=== PATIENT | female | born 1985 | race Caucasian/White ===

== ENCOUNTER 2017-04-05 12:55 | Emergency (ER) | payer OTHER ==
[2017-04-05 14:53] LABS: BASOPHIL % 1.1 % (0-2); PLATELET COUNT 300 x10^3mcL (130-400); RED CELL DISTRIBUTION WIDTH 13.1 % (11.5-14.5)
[2017-04-05 15:02] LABS: CALCIUM 9.3 mg/dL (8.5-10.1); CARBON DIOXIDE 28.5 mmol/L (21-32); CHLORIDE SERUM 101 mmol/L (98-107); CREATININE SERUM 0.8 mg/dL (0.6-1.0); GFR1 > 60 mL/min; GLUCOSE SERUM 114 mg/dL (74-106); POTASSIUM SERUM 3.3 mmol/L (3.5-5.1); SODIUM SERUM 139 mmol/L (136-145)
[2017-04-05 15:07] LABS: ALBUMIN 4.7 g/dL (3.4-5.0); ALKALINE PHOSPHATASE 62 U/L (46-116); ALT/SGPT 14 U/L (14-59); AST/SGOT 11 U/L (15-37); BILIRUBIN TOTAL 0.3 mg/dL (0.20-1.00); LIPASE 148 IU/L (73-393)
[2017-04-05 15:13] LABS: TOTAL PROTEIN, SERUM 8.3 g/dL (6.4-8.2)
[2017-04-05 18:12] LABS: microscopic required? YES; urine erythrocyte NEGATIVE (NEGATIVE)
[2017-04-05 18:35] VITALS: BP 140/93
== END 2017-04-05 18:35 | disposition home or self-care (01) ==
LOC: ED 12:55
PROVIDERS: Emergency Medicine
DX: K29.00 Acute gastritis without bleeding (principal); R11.10 Vomiting, unspecified; E86.0 Dehydration; E87.6 Hypokalemia; F84.0 Autistic disorder; Z88.0 Allergy status to penicillin
CPT/HCPCS: J1885; J2405; J7030

== ENCOUNTER 2017-07-25 14:22 | Inpatient (IN) | payer OTHER ==
[~2017-07-25] VITALS: Ht 167.6 cm; Wt 54.6 kg
--- NOTE | 2017-07-25 16:05 | NUR ---
PT BIB FATHER FOR C/O VOMITING AND FLU LIKE SX X 4 DAYS, PT DENIES HEADACHE, REPORTS PAIN TO ABDOMEN "FROM VOMITING" REPORTS NAUSEA WITH LAST EPISODE OF VOMITING THIS AM, PER FATHER SHE VOMITED APPROX TWICE THIS AM, DENIES SEEING BLOOD IN EMESIS, PER FATHER PT HAS "HIGH FUNCTIONING AUTISM" PT ABLE TO VERBALIZE NEEDS WITH OUT ANY PROBLEMS, PER FATHER PT TAKE TRAZODONE WITH NO CHANGES, REPORTS AFTER GIVING GATERADE PT VOMITS APPROX 30 MIN AFTER, PT FATHER DENIES DIARRHEA, ABD SOFT, SLIGHT TENDERNESS UPON PALPATION TO RLQ AND KATHYA UPPER QUANDRANTS, PT AWAKE AND ALERT, NO RECENT CHANGES IN MENTATION PER FATHER, PER FATHER SX STARTED TUESDAY, PT RESP EVEN AND UNLABORED, DENIES COUGH, LS CTA BILATERALLY, IN NO ACUTE DISTRESS, ON FULL MONITORS, WILL CONTINUE TO MONITOR
--- NOTE | 2017-07-25 16:07 | NUR ---
DR. VALDEZ AT BEDSIDE FOR MSE
--- NOTE | 2017-07-25 16:10 | NUR ---
INST PT TO PROVIDE URINE SAMPLE, PER PT AND PTS FATHER SHE ATTEMPTED APPROX 20 MINUTES AGO WITH NO SUCCESS, FATHER STS "I THINK SHES THAT DEHYDRATED" PER FATHER AND PT SHE WILL ATTEMPT ONCE SHE RECEIVE IV FLUIDS
--- NOTE | 2017-07-25 16:29 | NUR ---
LAB AT BEDSIDE FOR BLOOD DRAW AND CULTURES
[2017-07-25 16:52] LABS: BASOPHIL % 1.6 % (0-2); PLATELET COUNT 226 x10^3mcL (130-400); RED CELL DISTRIBUTION WIDTH 12.5 % (11.5-14.5)
--- NOTE | 2017-07-25 16:56 | NUR ---
PT AMBULATORY WITH STEADY GAIT TO RESTROOM AND BACK TO TREATMENT AREA WITH NO INCIDENCE TO PROVIDE A URINE SAMPLE, PT BACK TO BED IN A POSITION OF COMFORT, IVF CURRENTLY INFUSING AT THIS TIME, PT IN NO ACUTE DISTRESS,CALL LIGHT WITHIN REACH, WILL CONTINUE TO MONITOR
[2017-07-25 17:00] LABS: CALCIUM 9.2 mg/dL (8.5-10.1); CARBON DIOXIDE 27.8 mmol/L (21-32); CHLORIDE SERUM 98 mmol/L (98-107); CREATININE SERUM 0.5 mg/dL (0.6-1.0); GFR1 > 60 mL/min; GLUCOSE SERUM 102 mg/dL (74-106); POTASSIUM SERUM 3.4 mmol/L (3.5-5.1); SODIUM SERUM 140 mmol/L (136-145)
[2017-07-25 17:04] LABS: ALBUMIN 4.3 g/dL (3.4-5.0); ALKALINE PHOSPHATASE 65 U/L (46-116); ALT/SGPT 12 U/L (14-59); AMYLASE 49 U/L (25-115); AST/SGOT 10 U/L (15-37); BILIRUBIN TOTAL 0.3 mg/dL (0.20-1.00); LIPASE 144 IU/L (73-393); TOTAL PROTEIN, SERUM 7.8 g/dL (6.4-8.2)
[2017-07-25 17:16] LABS: UA SPECIFIC GRAVITY 1.025 (1.005-1.035); microscopic required? YES; urine erythrocyte 3+ (NEGATIVE)
[2017-07-25 17:24] LABS: AMPHETAMINE QUAL UR NONE DETECTED (NEG <=1000)
--- NOTE | 2017-07-25 18:27 | NUR ---
PT HAD ONE VOMITING EPISODE AND REPORTS NAUSEA AT THIS TIME, DR. VALDEZ MADE AWARE, PT MEDICATED PER MD ORDER, PLEASE SEE EMAR, PT TOLERATED WELL, WILL CHECK IF PT IS STILL NAUSEATED BEFORE ADMINSITERED ORDERED PO ABX IN APPROX 15-20 MINUTES, CALL LIGHT WITHIN REACH, PT FATHER AT BEDSIDE AT THIS TIME, WILL CONTINUE TO MONITOR
--- NOTE | 2017-07-25 18:47 | NUR ---
PT DENIES NAUSEA AT THIS TIME, INST TO TAKE SMALL SIPS OF WATER, PT ABLE TO WITHOUT FEELING NAUSEATED, PT MEDICATED PER MD ORDER, PLEASE SEE EMAR, PT TOLERATED WELL, PT SITTING IN BED IN A POSITION OF COMFORT, RESP EVEN AND UNLABORED, IN NO ACUTE DISTRESS, CALL LIGHT WITHIN REACH, WILL CONT TO MONITOR
--- NOTE | 2017-07-25 18:57 | NUR ---
PLAN OF CARE DISCUSSED BY DR. VALDEZ TO PT AND PTS FATHER AT BEDSIDE
[2017-07-25] MEDS ORDERED: AMITRIPTYLINE H10 MG PO (19:13)
[2017-07-25] MEDS ORDERED: TRAZODONE50 M1 PO (19:14)
--- NOTE | 2017-07-25 19:14 | NUR ---
MED REC COMPLETED, PER PT FATHER PT TAKES MEDICATIONS TO HELP WITH SLEEP DUE TO PT HAVING PTSD APPROX 5 YEARS AGO DUE TO A "BREAK IN"
--- NOTE | 2017-07-25 19:33 | NUR ---
REPORT GIVEN TO [facility] TELE FLOOR TO ASSUME CARE OF PT
--- NOTE | 2017-07-25 19:47 | NUR ---
REC'D PT FROM ER VIA [facility]ANILO. PT IS AAOX4. SLOW TO ANSWER. HX OF AUTISM. TELE #5 SR. LUNG SOUNDS CLEAR. NO SOB NOTED. ABD SOFT. BS ACTIVE X4. PT C/O MILD NAUSEA AND 5/10 ABD PAIN. IV NOTED TO LAC. INTACT AND PATENT. ORIENTED PT TO CALL LIGHT. BED IN LOWEST POSITION. WILL ENDORSE TO PRIMARY RN.
--- NOTE | 2017-07-25 19:50 | NUR ---
RECEIVED PT FROM ER VIA GURNEY WITH NURSE AT BEDSIDE. PT IS AWAKE, ALERT, ORIENTED X4. SPEECH CLEAR. PT ADMITTED FOR N/V, DEHYDRATION. PT STATES SHE IS FEELING BETTER WITH LITTLE NAUSEA NOTED. IVF INFUSING NS AT 100ML/HR. MIQUEL, RESOURCE NURSE, AT BEDSIDE TO ADMIT PT. TELE 5 PLACED ON PT, SHOWS NSR WITH HR 96. DENIES CHEST PAIN. INITIAL ASSESSMENT COMPLETED BY MIQUEL. INSTRUCTED PT TO USE CALL LIGHT WHICH IS WITHIN REACH. BED IS IN LOWEST POSITION. WILL CARRY OUT ALL NEW ORDERS AT THIS TIME.
[2017-07-25 20:00] VITALS: BP 123/73
[2017-07-25 20:47] LABS: CHOLESTEROL/HDL RATIO 2.7; MAGNESIUM 2.3 mg/dL (1.8-2.4); PHOSPHOROUS 2.9 mg/dL (2.5-4.9)
[2017-07-25 20:56] LABS: T3 TOTAL 0.93 ng/mL
[2017-07-25 20:57] LABS: FREE T4 1.07 ng/dL (0.76-1.46); FREE THYROXINE INDEX 3.4 ug/dL (1.4-4.5); T4(THYROXINE) 10.1 ug/dL (4.7-13.3)
--- NOTE | 2017-07-26 01:05 | NUR ---
MOTHER AT BEDSIDE. IVF INFUSING WELL AT THIS TIME, AT 150ML/HR. RESTING IN BED. WILL CONTINUE TO MONITOR CLOSELY.
[2017-07-26 06:19] VITALS: BP 127/89
--- NOTE | 2017-07-26 06:38 | NUR ---
PT SLEPT ON AND OFF THROUGH OUT THE NIGHT. IVF ONGOING AT 150ML/HR. MOTHER AT BEDSIDE. ALL NEEDS TENDED TO. WILL CONTINUE TO MONITOR CLOSELY.
--- NOTE | 2017-07-26 07:16 | NUR ---
PT SEEN REST ON BED, AWAKE A/O X4. PT REPORTED FEELING NAUSEA, BUT NO VOMIT. PT'S MOM AT BED SIDE. PT BREATHING ON RA, EVEN, UNLABORED. IV SITE PATENT, INTACT. IVF INFUSING WELL.
[2017-07-26 08:15] VITALS: BP 128/89
--- NOTE | 2017-07-26 10:05 | NUR ---
PT COMPLAIN OF NAUSEA AND REPORT VOMIT. ZOFRAM GIVEN PER PRN ORDER.
[2017-07-26 10:06] VITALS: BP 132/96
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
[2017-07-26 12:50] VITALS: BP 128/86
[2017-07-26] MEDS ORDERED: BACTRIM DS1 TAB PO (13:32)
[2017-07-26] MEDS ORDERED: BD LACTINEX1.4 MG PO (13:32)
[2017-07-26] MEDS ORDERED: KLOR-CON M2020 MEQ PO (13:33)
[2017-07-26 14:41] VITALS: BP 128/86
[2017-07-26 14:47] VITALS: BP 88/58
--- NOTE | 2017-07-26 15:18 | NUR ---
PT IS READY TO BE DISCHARGE. PT'S MOM AT BED SIDE. PT NO COMPLAIN OF NAUSEA. PT IS ABLE TO KEEP LIQUID FOOD DOWN. NO DISTRESSED NOTED AT THIS TIME. IV IS REMOVED.
== END 2017-07-26 15:24 | disposition home or self-care (01) | DRG 689 ==
LOC: ED 14:22 → DU 19:13
PROVIDERS: Emergency Medicine; ADMIT Family Medicine
DX: N39.0 Urinary tract infection, site not specified (principal); N17.0 Acute kidney failure with tubular necrosis; F84.0 Autistic disorder; Z68.1 Body mass index [BMI] 19.9 or less, adult; E86.0 Dehydration; E87.6 Hypokalemia; F43.10 Post-traumatic stress disorder, unspecified
CPT/HCPCS: 83880; 84439; J1956; J2405; J3490; J7030; J7040; Q0092

== ENCOUNTER 2017-10-30 02:02 | Inpatient (IN) | payer OTHER ==
[~2017-10-30] VITALS: Ht 167.6 cm; Wt 53.1 kg
[~2017-10-30 02:02] MED LIST: AMITRIPTYLINE H10 MG PO; BACTRIM DS1 TAB PO; BD LACTINEX1.4 MG PO; KLOR-CON M2020 MEQ PO; TRAZODONE50 M1 PO
[2017-10-30 03:33] LABS: UA SPECIFIC GRAVITY 1.025 (1.005-1.035); microscopic required? YES; urine erythrocyte NEGATIVE (NEGATIVE)
[2017-10-30 03:35] LABS: BASOPHIL % 0.1 % (0-2); PLATELET COUNT 279 x10^3mcL (130-400); RED CELL DISTRIBUTION WIDTH 13.2 % (11.5-14.5)
[2017-10-30 03:46] LABS: CALCIUM 9.6 mg/dL (8.5-10.1); CARBON DIOXIDE 32.4 mmol/L (21-32); CHLORIDE SERUM 95 mmol/L (98-107); CREATININE SERUM 0.8 mg/dL (0.6-1.0); GFR1 > 60 mL/min; GLUCOSE SERUM 117 mg/dL (74-106); POTASSIUM SERUM 3.1 mmol/L (3.5-5.1); SODIUM SERUM 138 mmol/L (136-145)
[2017-10-30 03:51] LABS: ALBUMIN 4.6 g/dL (3.4-5.0); ALKALINE PHOSPHATASE 65 U/L (46-116); ALT/SGPT 16 U/L (14-59); AST/SGOT 18 U/L (15-37); BILIRUBIN TOTAL 0.45 mg/dL (0.20-1.00)
[2017-10-30 03:52] LABS: TOTAL PROTEIN, SERUM 8.7 g/dL (6.4-8.2)
[2017-10-30] MEDS ORDERED: AMITRIPTYLINE H10 MG PO (05:00)
[2017-10-30] MEDS ORDERED: TRAZODONE100 MG PO (05:02)
[2017-10-30] MEDS ORDERED: LATUDA40 M1 (05:02)
[2017-10-30 06:55] VITALS: BP 127/86
[2017-10-30 06:59] LABS: T3 TOTAL 0.88 ng/mL
[2017-10-30 07:07] LABS: MAGNESIUM 2.6 mg/dL (1.8-2.4); PHOSPHOROUS 3.6 mg/dL (2.5-4.9)
[2017-10-30 07:13] LABS: CHOLESTEROL/HDL RATIO 2.5
[2017-10-30 07:17] LABS: FREE T4 1.17 ng/dL (0.76-1.46); T4(THYROXINE) 11.8 ug/dL (4.7-13.3)
[2017-10-30 07:42] VITALS: BP 127/86
[2017-10-30] MEDS ORDERED: AMITRIPTYLINE H25 MG PO (09:46)
[2017-10-30 10:12] VITALS: BP 134/88
[2017-10-30 13:05] VITALS: BP 120/93
[2017-10-30 15:55] LABS: AMPHETAMINE QUAL UR NONE DETECTED (NEG <=1000)
[2017-10-30 17:23] VITALS: BP 131/88
[2017-10-30 21:33] VITALS: BP 121/91
[2017-10-31 05:45] VITALS: BP 116/83
[2017-10-31 06:59] LABS: CALCIUM 8.8 mg/dL (8.5-10.1); CARBON DIOXIDE 29.9 mmol/L (21-32); CHLORIDE SERUM 102 mmol/L (98-107); CREATININE SERUM 0.7 mg/dL (0.6-1.0); GFR1 > 60 mL/min; GLUCOSE SERUM 121 mg/dL (74-106); PHOSPHOROUS 2.7 mg/dL (2.5-4.9); POTASSIUM SERUM 3.1 mmol/L (3.5-5.1); SODIUM SERUM 138 mmol/L (136-145)
[2017-10-31 07:04] LABS: BASOPHIL % 0.2 % (0-2); PLATELET COUNT 221 x10^3mcL (130-400)
[2017-10-31 09:18] VITALS: BP 148/97
[2017-10-31 13:58] VITALS: BP 148/97
[2017-10-31 14:03] VITALS: BP 128/91
== END 2017-10-31 15:30 | disposition home or self-care (01) | DRG 391 ==
LOC: ED 02:02 → DU 05:40
PROVIDERS: Emergency Medicine; ADMIT Family Medicine
DX: K21.0 Gastro-esophageal reflux disease with esophagitis (principal); N17.0 Acute kidney failure with tubular necrosis; F84.0 Autistic disorder; N39.0 Urinary tract infection, site not specified; Z68.1 Body mass index [BMI] 19.9 or less, adult; E86.0 Dehydration; K52.9 Noninfective gastroenteritis and colitis, unspecified; E87.6 Hypokalemia; G43.909 Migraine, unspecified, not intractable, without status migrainosus; Q51.2 Other doubling of uterus; E83.41 Hypermagnesemia; R80.9 Proteinuria, unspecified; F32.9 Major depressive disorder, single episode, unspecified; T50.995A Adverse effect of other drugs, medicaments and biological substances, initial encounter; Y92.018 Other place in single-family (private) house as the place of occurrence of the external cause
CPT/HCPCS: 83880; 84439; C9113; J0696; J2405; J2765; J3480; J3490; J7030; J7040; Q0092; Q9967

== ENCOUNTER 2018-06-02 22:16 | Emergency (ER) | payer OTHER ==
[~2018-06-02] VITALS: Ht 165.1 cm; Wt 48.5 kg
[~2018-06-02 22:16] MED LIST changes: +AMITRIPTYLINE H25 MG PO; +LATUDA40 M1; +TRAZODONE100 MG PO
[2018-06-02 22:34] VITALS: Ht 165.1 cm; Wt 48.5 kg
[2018-06-03 02:33] LABS: CALCIUM 8.3 mg/dL (8.5-10.1); CARBON DIOXIDE 24.4 mmol/L (21-32); CHLORIDE SERUM 104 mmol/L (98-107); CREATININE SERUM 0.7 mg/dL (0.6-1.0); GFR1 > 60 mL/min; GLUCOSE SERUM 96 mg/dL (74-106); POTASSIUM SERUM 3.3 mmol/L (3.5-5.1); SODIUM SERUM 141 mmol/L (136-145)
[2018-06-03 02:37] LABS: ALBUMIN 3.6 g/dL (3.4-5.0); ALKALINE PHOSPHATASE 49 U/L (46-116); AST/SGOT 8 U/L (15-37); BILIRUBIN TOTAL 0.46 mg/dL (0.20-1.00); LIPASE 106 IU/L (73-393); TOTAL PROTEIN, SERUM 6.7 g/dL (6.4-8.2)
[2018-06-03 02:49] LABS: ALT/SGPT 15 U/L (14-59)
[2018-06-03 05:06] VITALS: BP 140/90
== END 2018-06-03 05:07 | disposition home or self-care (01) ==
LOC: ED 22:16
PROVIDERS: Emergency Medicine
DX: E87.6 Hypokalemia (principal); R10.10 Upper abdominal pain, unspecified; Z88.0 Allergy status to penicillin
CPT/HCPCS: J2405; J7030